=== PATIENT | female | born 1950 | race Caucasian/White ===

== ENCOUNTER 2016-12-29 10:49 | Day surgery (SDC) | payer MEDICARE, BC ==
[~2016-12-29 10:49] MED LIST: Acetaminophen TAB* 325 MG PO PRN; Acetylcholine 1:100 OPTH* OPHTH.SOLN ONE; Atropine 1% OPHTH.SOL* 2 ML BOT - 2 ML ONE; BSS OPTH.SOL* BTL ONE; Buffered Lidocaine 1% SYR 3ML* 3 ML/SYR SYRINGE INTRADERM ONE; Dexamethasone IV* 8 MG in NS 0.9% 50 ML* 50 ML IVPB ONE; Famotidine IV* 10 MG/ML 2 ML (20 mg) IV SLOW PU ONE; Hyaluronidase OVINE* 200 UNIT/ML ML SUBCUT ONE; Lidocaine 2% EPI 1:200000 MPF* 20 ML VIAL ONE; Lidocaine 2% PF* 10 ML AMP ONE; Neomycin/Polymy/Dex OPTH.SUSP* MAXITROL 0.1% 5 ML ONE; Povidone Iodine 5% OPTH* 30 ML BTL ONE; Triamcinolone Acetonide* 40 MG/ML 1 ML VIAL ONE
[2016-12-29] MEDS ORDERED: Proparacaine 0.5% OPHTH.SOL* 15 ML BTL ONE (11:24)
[2016-12-29] MEDS ORDERED: Famotidine IV* 10 MG/ML 2 ML (20 mg) ONE (11:52)
[2016-12-29] MEDS ORDERED: Dexamethasone IV* 4 MG/ML 1 ML (4 MG) ONE (11:53)
[2016-12-29] MEDS ORDERED: Midazolam* 1 MG/ML 2 ML VIAL (2 MG) ONE ×2 (14:04→15:17)
[2016-12-29] MEDS ORDERED: fentaNYL* 50 MCG/ML 2 ML VIAL (100 MCG VIAL) ONE (14:04)
[2016-12-29] MEDS ORDERED: Ondansetron INJ* 2 MG/ML VIAL ONE (14:29)
[2016-12-29] MEDS ORDERED: Propofol* 10 MG/ML 20 ML BTL IV PUSH ONE (15:28)
[2016-12-29 16:09] VITALS: BP 136/50
--- NOTE | 2016-12-30 02:08 | OP ---
DATE OF OPERATION: 12/29/16 [facility] DATE OF : 48 SURGEON: Faisal Ding MD ANESTHESIA: Local with MAC. PREOPERATIVE DIAGNOSIS: Uncontrolled glaucoma, right eye. POSTOPERATIVE DIAGNOSIS: Uncontrolled glaucoma, right eye. OPERATIVE PROCEDURE: Ahmed valve, right eye with donor sclera. COMPLICATIONS: None. DESCRIPTION OF PROCEDURE: The patient was given retrobulbar anesthesia in the operating room, a 50:50 mixture of 0.75 Marcaine and 2% lidocaine with epinephrine, 4 cc given in the muscle cone without difficulty. The eye was prepped and draped in the usual sterile fashion. Lid speculum was placed. A superior 6-0 silk traction sutures was placed through the superior limbus. The eye rotated inferiorly. A conjunctival peritomy was performed with the Ever scissors fornix based from the 12 o'clock to the 9 o'clock position. The Ahmed valve was primed using saline and a 30-gauge cannula and then sutured to bare sclera with two 9-0 Prolene sutures 10 mm posterior to the surgical limbus. Paracentesis was made at the 8 o'clock position with 75 blade. Miochol instilled into the anterior chamber. A 25-gauge needle used to enter the anterior chamber for placement of the tube at the 10 o'clock position. DisCoVisc put through that tunnel and a tube trimmed and placed into the anterior chamber. The tube was sutured to the bare sclera using two 9-0 Prolene sutures. The donor sclera was fashioned to cover the tube sutured with four 10-0 nylon sutures. Conjunctiva was closed using a running locking 10-0 nylon suture closure. Topical atropine and Maxitrol were given. Traction suture removed and the eye was patched. [id number]/[facility] #: [id number] [facility]
== END 2016-12-29 16:05 | disposition home or self-care (01) ==
LOC: OREAST 10:49
PROVIDERS: ATTEND Specialist
DX: H40.1111 Primary open-angle glaucoma, right eye, mild stage (principal); H40.52X3 Glaucoma secondary to other eye disorders, left eye, severe stage; I10 Essential (primary) hypertension; I34.0 Nonrheumatic mitral (valve) insufficiency; I27.2 Other secondary pulmonary hypertension; E11.9 Type 2 diabetes mellitus without complications; Z79.4 Long term (current) use of insulin; N18.9 Chronic kidney disease, unspecified
CPT/HCPCS: A9270-GY; C1776; C1783; J1100; J2001; J2250; J2405; J2704; J3010; J3301